=== PATIENT | female | born 1995 | race African-American/Black ===

== ENCOUNTER 2018-03-10 05:37 | Inpatient (IN) | payer MEDICAID ==
[~2018-03-10] VITALS: Ht 167.6 cm; Wt 99.8 kg
[2018-03-10] MEDS ORDERED: DEXT 5%/LR + PITOCIN 20UNITS/L 1,000 ML IV ONE (05:52)
[2018-03-10] MEDS ORDERED: DEXT 5%/LR + PITOCIN 20UNITS/L 1,000 ML IV SCH ×2 (05:55→05:59)
[2018-03-10] MEDS ORDERED: IBUPROFEN 800MG TABLET PO PRN (06:00)
[2018-03-10] MEDS ORDERED: BISACODYL 10MG SUPP PR PRN (06:00)
[2018-03-10] MEDS ORDERED: GLYCERIN/WITCH HAZEL LEAF MEDICATED PAD TOP PRN (06:00)
[2018-03-10] MEDS ORDERED: LANOLIN OINT 0.25 GM TUBE TOP PRN (06:00)
[2018-03-10] MEDS ORDERED: METHYLERGONOVINE MALEATE 0.2 MG/ML IM PRN ×2 (06:00)
[2018-03-10] MEDS ORDERED: PNV1TABL76 MT (06:00)
[2018-03-10] MEDS ORDERED: ACETAMINOPHEN WITH CODEINE 300/30MG TABLET PO PRN ×2 (06:00)
[2018-03-10] MEDS ORDERED: RHO(D) IMMUNE GLOBULIN 300 MCG/SYR IM PRN (06:00)
[2018-03-10 06:35] LABS: BASOPHILS % 0.2 % (0.0-2.0); HEMATOCRIT. 31.9 % (36.0-48.0); HEMOGLOBIN. 10.8 g/dL (12.0-16.0); LYMPHOCYTES % 9.1 % (20.0-50.0); MEAN CORPUSCULAR HEMOGLOBIN 28.9 pg (28.0-32.0); MEAN PLATELET VOLUME 8.5 fl (7.4-10.4); MONOCYTES % 5.5 % (2.0-8.0); NEUTROPHILS % 85.2 % (40.0-76.0); PLATELET 259 x1000/uL (130-400); RED BLOOD CELL COUNT 3.75 mill/uL (4.2-5.4); RED CELL DISTRIBUTION WIDTH 14.4 % (11.6-14.6)
[2018-03-10 06:44] LABS: PARTIAL THROMBOPLASTIN TIME 29.8 sec (23.4-31.0); PROTHROMBIN TIME 10.1 sec (9.4-11.6)
[2018-03-10 07:01] LABS: CLARITY URINE CLEAR (CLEAR); COLOR URINE DARK YELLOW (YELLOW); KETONES URINE 1+ (NEGATIVE); LEUKOCYTE ESTERASE URINE TRACE (NEGATIVE); NITRITE URINE NEGATIVE (NEGATIVE); OCCULT BLOOD URINE 1+ (NEGATIVE); PROTEIN URINE 1+ (NEGATIVE); SPECIFIC GRAVITY URINE 1.024 (1.005-1.030)
[2018-03-10] MEDS: SIMETHICONE 80MG TABLET CHEW PO SCH ×2 (07:22→20:58)
[2018-03-10 08:12] LABS: *AMPHETAMINES SCREEN URINE NEGATIVE (NEGATIVE); *BARBITURATES SCREEN URINE NEGATIVE (NEGATIVE); *BENZODIAZEPINES SCREEN URINE NEGATIVE (NEGATIVE); *COCAINE SCREEN URINE NEGATIVE (NEGATIVE); METHADONE URINE SCREEN NEGATIVE (NEGATIVE)
[2018-03-10 08:13] LABS: CANNABINOID URINE SCREEN NEGATIVE (NEGATIVE); OPIATES URINE SCREEN NEGATIVE (NEGATIVE); PHENCYCLIDINE URINE SCREEN NEGATIVE (NEGATIVE)
[2018-03-10 08:35] VITALS: BP 116/65
[2018-03-10] MEDS: IBUPROFEN 400MG TABLET PO PRN (08:38)
[2018-03-10] MEDS: PRENATAL VIT/FE FUMARATE/FA TABLET PO SCH (08:38)
[2018-03-10 09:45] VITALS: BP 120/70
[2018-03-10] MEDS ORDERED: TETANUS, DIPHTHERIA, PERTUSSIS VAC/PF 0.5ML (>7YR OLD) IM ONE (09:45)
[2018-03-10] MEDS ORDERED: INFLUENZA VIRUS VACCINE 0.5ML SYR IM ONE (09:45)
[2018-03-10 10:35] LABS: RUBELLA IGG 151.1 IU/mL (4.99-10)
[2018-03-10 10:36] LABS: HEPATITIS B SURFACE ANTIGEN NEGATIVE
[2018-03-10 15:23] VITALS: BP 110/59
[2018-03-10 19:50] VITALS: BP 126/84
[2018-03-11] VITALS: BP 103/53
[2018-03-11 06:03] VITALS: BP 112/67
[2018-03-11 06:11] LABS: BASOPHILS % 0.7 % (0.0-2.0); EOSINOPHILS % 1.5 % (0.0-5.0); HEMATOCRIT. 28.8 % (36.0-48.0); HEMOGLOBIN. 9.3 g/dL (12.0-16.0); LYMPHOCYTES % 27.1 % (20.0-50.0); MEAN CORPUSCULAR HEMOGLOBIN 27.6 pg (28.0-32.0); MEAN CORPUSCULAR VOLUME 85.2 fL (81.0-99.0); MEAN PLATELET VOLUME 8.5 fl (7.4-10.4); MONOCYTES % 7.5 % (2.0-8.0); NEUTROPHILS % 63.2 % (40.0-76.0); PLATELET 226 x1000/uL (130-400); RED BLOOD CELL COUNT 3.39 mill/uL (4.2-5.4); RED CELL DISTRIBUTION WIDTH 14.5 % (11.6-14.6)
[2018-03-11 08:00] VITALS: BP 128/52
[2018-03-11] MEDS: SIMETHICONE 80MG TABLET CHEW PO SCH ×4 (10:09→21:02)
[2018-03-11] MEDS: PRENATAL VIT/FE FUMARATE/FA TABLET PO SCH (10:10)
[2018-03-11 16:00] VITALS: BP 112/63
[2018-03-11 19:40] VITALS: BP 107/70
[2018-03-12 08:00] VITALS: BP 116/74
[2018-03-12] MEDS: IBUPROFEN 400MG TABLET PO PRN (11:44)
[2018-03-12] MEDS: SIMETHICONE 80MG TABLET CHEW PO SCH ×2 (11:45→11:46)
[2018-03-12] MEDS: PRENATAL VIT/FE FUMARATE/FA TABLET PO SCH (11:45)
== END 2018-03-12 12:10 | disposition home or self-care (01) | DRG 561 ==
LOC: OBSVTOIN 05:37 → L&D 05:37 → 7EST PP/OB 08:28
PROVIDERS: ADMIT Obstetrics & Gynecology; ATTEND Obstetrics & Gynecology
DX: Z39.0 Encounter for care and examination of mother immediately after delivery (principal); O90.81 Anemia of the puerperium; Y92.481 Parking lot as the place of occurrence of the external cause
CPT/HCPCS: 36415; 80305; 81003; 85025; 85610; 85730; 86592; 86703; 86762; 86850; 86900; 87340; C1893; J2590